=== PATIENT | female | born 1940 | race African-American/Black ===

== ENCOUNTER 2018-05-11 14:20 | Inpatient (IN) | payer BC, MEDICARE ==
[~2018-05-11] VITALS: Ht 157.5 cm; Wt 62.6 kg
[2018-05-11] MEDS ORDERED: ALBUTEROL (0.083%) 2.5MG/3ML NEB HHN STA (14:55)
[2018-05-11] MEDS ORDERED: METHYLPREDNISOLONE SOD SUCC 125 MG/2 ML VIAL IV STA (14:55)
[2018-05-11] MEDS ORDERED: IPRATROPIUM BROMIDE (0.02%) 0.5MG/2.5ML NEB HHN STA (14:55)
[2018-05-11 15:32] LABS: BASOPHILS % 0.8 % (0.0-2.0); EOSINOPHILS % 1.6 % (0.0-5.0); HEMATOCRIT. 40.6 % (36.0-48.0); HEMOGLOBIN. 13.4 g/dL (12.0-16.0); LYMPHOCYTES % 22.2 % (20.0-50.0); MEAN CORPUSCULAR HEMOGLOBIN 29.7 pg (28.0-32.0); MEAN CORPUSCULAR VOLUME 89.9 fL (81.0-99.0); MEAN PLATELET VOLUME 8.3 fl (7.4-10.4); MONOCYTES % 7.4 % (2.0-8.0); PLATELET 263 x1000/uL (130-400); RED BLOOD CELL COUNT 4.51 mill/uL (4.2-5.4); RED CELL DISTRIBUTION WIDTH 14.2 % (11.6-14.6)
[2018-05-11 15:35] LABS: CHLORIDE 105 mEq/L (98-107)
[2018-05-11] MEDS ORDERED: IOHEXOL-350 100 ML BOTTLE ONE (20:14)
[2018-05-11] MEDS ORDERED: CLONIDINE 0.1MG TABLET PO PRN (20:15)
[2018-05-11] MEDS ORDERED: ONDANSETRON HCL 4MG/2ML INJ IV PRN (20:15)
[2018-05-11] MEDS ORDERED: IPRATROPIUM/ALBUTEROL 0.5-3(2.5)MG/3ML NEB HHN PRN (20:15)
[2018-05-12] VITALS (8 sets, daily range): BP systolic 120–163; BP diastolic 61–92
[2018-05-12] MEDS: IPRATROPIUM/ALBUTEROL 0.5-3(2.5)MG/3ML NEB HHN SCH ×6 (00:40→20:42)
[2018-05-12] MEDS: GUAIFENESIN-DM 200MG-20MG/10ML UDC PO PRN ×2 (01:10→18:18)
[2018-05-12] MEDS ORDERED: SIMV20TA6 MT (01:55)
[2018-05-12] MEDS ORDERED: TIOT18CA3 INH (01:55)
[2018-05-12] MEDS ORDERED: AMLO2.5T45 MT (01:55)
[2018-05-12] MEDS ORDERED: ASPI-1158 MT (01:55)
[2018-05-12] MEDS ORDERED: ALBUL MT (01:55)
[2018-05-12] MEDS ORDERED: BUDE6.9H INH (01:55)
[2018-05-12] MEDS: METHYLPREDNISOLONE SOD SUCC 40 MG/ML VIAL IV SCH ×4 (02:37→18:00)
[2018-05-12 06:42] LABS: BASOPHILS % 0.2 % (0.0-2.0); HEMATOCRIT. 40.1 % (36.0-48.0); HEMOGLOBIN. 13.2 g/dL (12.0-16.0); LYMPHOCYTES % 20.2 % (20.0-50.0); MEAN CORPUSCULAR HEMOGLOBIN 29.7 pg (28.0-32.0); MEAN CORPUSCULAR VOLUME 90.2 fL (81.0-99.0); MEAN PLATELET VOLUME 8.5 fl (7.4-10.4); MONOCYTES % 2.2 % (2.0-8.0); NEUTROPHILS % 77.4 % (40.0-76.0); PLATELET 254 x1000/uL (130-400); RED BLOOD CELL COUNT 4.44 mill/uL (4.2-5.4); RED CELL DISTRIBUTION WIDTH 14.4 % (11.6-14.6)
[2018-05-12 07:30] LABS: CHLORIDE 103 mEq/L (98-107)
[2018-05-12 09:34] LABS: *AMPHETAMINES SCREEN URINE NEGATIVE (NEGATIVE)
[2018-05-12 09:35] LABS: *BARBITURATES SCREEN URINE NEGATIVE (NEGATIVE); *COCAINE SCREEN URINE NEGATIVE (NEGATIVE); CANNABINOID URINE SCREEN NEGATIVE (NEGATIVE)
[2018-05-12 09:38] LABS: PHENCYCLIDINE URINE SCREEN NEGATIVE (NEGATIVE)
[2018-05-12 09:39] LABS: OPIATES URINE SCREEN NEGATIVE (NEGATIVE)
[2018-05-12 09:42] LABS: *BENZODIAZEPINES SCREEN URINE NEGATIVE (NEGATIVE); METHADONE URINE SCREEN NEGATIVE (NEGATIVE)
[2018-05-12] MEDS: ACETAMINOPHEN 325MG TABLET PO PRN (12:39)
[2018-05-12] MEDS ORDERED: MEDICATION NOT ON FORMULARY EA (Budesonide/Formoterol Fumarate (Symbicort 80/4.5 Mcg Inh INH SCH (14:30)
[2018-05-12] MEDS ORDERED: MEDICATION NOT ON FORMULARY EA (Aspirin (Aspirin Ec) 1 TAB) MT SCH (14:30)
[2018-05-12] MEDS ORDERED: NON FORMULARY PATIENT HOME MED XX SCH ×2 (14:30)
[2018-05-12] MEDS ORDERED: MEDICATION NOT ON FORMULARY EA (Tiotropium Bromide (Spiriva) 1 CAP) INH SCH (14:30)
[2018-05-12] MEDS ORDERED: MEDICATION NOT ON FORMULARY EA (Amlodipine Besylate 1 TAB) MT SCH (14:30)
[2018-05-12] MEDS ORDERED: TRAMADOL 50MG TABLET PO PRN (14:45)
[2018-05-12] MEDS: SYMBICORT HHN SCH (17:15)
[2018-05-12 20:27] LABS: CLARITY URINE CLEAR (CLEAR); COLOR URINE YELLOW (YELLOW); KETONES URINE NEGATIVE (NEGATIVE); LEUKOCYTE ESTERASE URINE 2+ (NEGATIVE); NITRITE URINE NEGATIVE (NEGATIVE); OCCULT BLOOD URINE NEGATIVE (NEGATIVE); PH URINE 5.5 (4.5-8.0); PROTEIN URINE NEGATIVE (NEGATIVE); SPECIFIC GRAVITY URINE 1.011 (1.005-1.030); UROBILINOGEN URINE 0.2 E.U./dL (0.2-1.0)
[2018-05-12] MEDS ORDERED: ATORVASTATIN CALCIUM 10MG TABLET PO SCH (21:00)
[2018-05-12] MEDS ORDERED: MEDICATION NOT ON FORMULARY EA (Simvastatin 1 TAB) MT SCH (21:00)
[2018-05-13] VITALS: BP 117/72
[2018-05-13] MEDS: IPRATROPIUM/ALBUTEROL 0.5-3(2.5)MG/3ML NEB HHN SCH ×5 (00:21→16:23)
[2018-05-13] MEDS: METHYLPREDNISOLONE SOD SUCC 40 MG/ML VIAL IV SCH ×2 (02:52→09:45)
[2018-05-13 04:00] VITALS: BP 134/55
[2018-05-13 07:04] LABS: CHLORIDE 106 mEq/L (98-107)
[2018-05-13 07:13] LABS: BASOPHILS % 0.1 % (0.0-2.0); HEMATOCRIT. 39.1 % (36.0-48.0); HEMOGLOBIN. 12.6 g/dL (12.0-16.0); LYMPHOCYTES % 12.1 % (20.0-50.0); MEAN CORPUSCULAR HEMOGLOBIN 29.3 pg (28.0-32.0); MEAN CORPUSCULAR VOLUME 90.8 fL (81.0-99.0); MEAN PLATELET VOLUME 8.8 fl (7.4-10.4); MONOCYTES % 4.6 % (2.0-8.0); NEUTROPHILS % 83.2 % (40.0-76.0); PLATELET 289 x1000/uL (130-400); RED CELL DISTRIBUTION WIDTH 14.3 % (11.6-14.6)
[2018-05-13 08:00] VITALS: BP 141/79
[2018-05-13] MEDS ORDERED: AMLODIPINE 2.5MG TABLET PO SCH (09:00)
[2018-05-13] MEDS ORDERED: ASPIRIN 81MG TABLET PO SCH (09:00)
[2018-05-13] MEDS: ACETAMINOPHEN 325MG TABLET PO PRN (09:44)
[2018-05-13] MEDS: SYMBICORT HHN SCH ×2 (09:46→16:28)
[2018-05-13] MEDS ORDERED: CEFTRIAXONE 1 G PREMIX 50 ML IV SCH (10:00)
[2018-05-13 12:00] VITALS: BP 124/74
[2018-05-13] MEDS ORDERED: SPIRIVA RESPIMAT HHN SCH (17:00)
== END 2018-05-13 17:20 | disposition home health service (06) | DRG 189 ==
LOC: ER 14:20 → 5WST 17:56 → EDBEDREQTM 17:58 → EDBEDREQ 17:58 → ENRESERV 22:26
PROVIDERS: ADMIT Internal Medicine; ATTEND Internal Medicine
DX: J96.20 Acute and chronic respiratory failure, unspecified whether with hypoxia or hypercapnia (principal); E44.1 Mild protein-calorie malnutrition; N39.0 Urinary tract infection, site not specified; E78.5 Hyperlipidemia, unspecified; I10 Essential (primary) hypertension; J43.9 Emphysema, unspecified; Z87.891 Personal history of nicotine dependence; Z99.81 Dependence on supplemental oxygen; Z68.25 Body mass index [BMI] 25.0-25.9, adult
CPT/HCPCS: 36415; 71045; 71275; 80048; 80305; 83880; 84484; 93005; 93970; 94640; 96374; 97116; 97162; 99285; C1893; J0696; J2920; J2930; J7050; J7611; J7620; Q9967